=== PATIENT | female | born 1945 | race Caucasian/White ===

== ENCOUNTER → 2024-01-23 | Outpatient (CLI) | payer BC, SELFPAY | END | disposition home or self-care (01) | LOC: SWHD 12:48 | PROVIDERS: PCP Internal Medicine; Referring Provider Internal Medicine; Visit Provider Student in an Organized Health Care Education/Training Program | DX: L97.822 Non-pressure chronic ulcer of other part of left lower leg with fat layer exposed (principal); L97.812 Non-pressure chronic ulcer of other part of right lower leg with fat layer exposed; J45.909 Unspecified asthma, uncomplicated; G47.30 Sleep apnea, unspecified; Z92.3 Personal history of irradiation | CPT/HCPCS: 29581; A9270 ==

== ENCOUNTER → 2024-01-29 | Outpatient (CLI) | payer BC, SELFPAY | END | disposition home or self-care (01) | LOC: SWHD 03-19 07:20 | PROVIDERS: PCP Internal Medicine; Referring Provider Internal Medicine; Visit Provider Surgery | DX: I87.333 Chronic venous hypertension (idiopathic) with ulcer and inflammation of bilateral lower extremity (principal); L97.822 Non-pressure chronic ulcer of other part of left lower leg with fat layer exposed; L97.812 Non-pressure chronic ulcer of other part of right lower leg with fat layer exposed; J45.909 Unspecified asthma, uncomplicated; G47.30 Sleep apnea, unspecified; Z92.3 Personal history of irradiation | CPT/HCPCS: 29581 ==

== ENCOUNTER → 2024-02-09 | Outpatient (CLI) | payer BC, SELFPAY | END | disposition home or self-care (01) | LOC: SWHD 10:31 | PROVIDERS: PCP Internal Medicine; Referring Provider Internal Medicine; Visit Provider Surgery | DX: L97.811 Non-pressure chronic ulcer of other part of right lower leg limited to breakdown of skin (principal); J45.909 Unspecified asthma, uncomplicated; G47.30 Sleep apnea, unspecified; Z92.3 Personal history of irradiation | CPT/HCPCS: 29581 ==

== ENCOUNTER → 2024-03-02 | Outpatient (CLI) | payer BC, SELFPAY | END | disposition home or self-care (01) | LOC: SWHD 12:58 | PROVIDERS: PCP Internal Medicine; Referring Provider Internal Medicine; Visit Provider Student in an Organized Health Care Education/Training Program | DX: L97.822 Non-pressure chronic ulcer of other part of left lower leg with fat layer exposed (principal); J45.909 Unspecified asthma, uncomplicated; G47.30 Sleep apnea, unspecified; Z72.3 Lack of physical exercise; Z92.3 Personal history of irradiation | CPT/HCPCS: 11042; A9270 ==

== ENCOUNTER → 2024-03-09 | Outpatient (CLI) | payer BC, SELFPAY | END | disposition home or self-care (01) | PROVIDERS: PCP Internal Medicine; Referring Provider Internal Medicine; Visit Provider Student in an Organized Health Care Education/Training Program | DX: L97.822 Non-pressure chronic ulcer of other part of left lower leg with fat layer exposed (principal); J45.909 Unspecified asthma, uncomplicated; G47.30 Sleep apnea, unspecified; Z72.3 Lack of physical exercise; Z92.3 Personal history of irradiation | CPT/HCPCS: 11042; A9270 ==

== ENCOUNTER → 2024-03-16 | Outpatient (CLI) | payer BC, SELFPAY | END | disposition home or self-care (01) | LOC: SWHD 14:21 | PROVIDERS: PCP Internal Medicine; Referring Provider Internal Medicine; Visit Provider Surgery | DX: L97.822 Non-pressure chronic ulcer of other part of left lower leg with fat layer exposed (principal); J45.909 Unspecified asthma, uncomplicated; G47.30 Sleep apnea, unspecified; Z72.3 Lack of physical exercise; Z92.3 Personal history of irradiation | CPT/HCPCS: 29580; A9270 ==

== ENCOUNTER → 2024-03-23 | Outpatient (CLI) | payer BC, SELFPAY | END | disposition home or self-care (01) | LOC: SWHD 14:19 | PROVIDERS: PCP Internal Medicine; Referring Provider Internal Medicine; Visit Provider Student in an Organized Health Care Education/Training Program | DX: L97.822 Non-pressure chronic ulcer of other part of left lower leg with fat layer exposed (principal); L97.811 Non-pressure chronic ulcer of other part of right lower leg limited to breakdown of skin; J45.909 Unspecified asthma, uncomplicated; G47.30 Sleep apnea, unspecified; Z72.3 Lack of physical exercise; Z92.3 Personal history of irradiation | CPT/HCPCS: 11042; A9270 ==

== ENCOUNTER → 2024-03-30 | Outpatient (CLI) | payer BC, SELFPAY | END | disposition home or self-care (01) | PROVIDERS: PCP Internal Medicine; Referring Provider Internal Medicine; Visit Provider Student in an Organized Health Care Education/Training Program | DX: L97.822 Non-pressure chronic ulcer of other part of left lower leg with fat layer exposed (principal); L97.811 Non-pressure chronic ulcer of other part of right lower leg limited to breakdown of skin; J45.909 Unspecified asthma, uncomplicated; G47.30 Sleep apnea, unspecified; Z72.3 Lack of physical exercise; Z92.3 Personal history of irradiation | CPT/HCPCS: 11042; A9270 ==

== ENCOUNTER → 2024-04-08 | Outpatient (CLI) | payer BC, SELFPAY | END | disposition home or self-care (01) | PROVIDERS: PCP Internal Medicine; Referring Provider Internal Medicine; Visit Provider Student in an Organized Health Care Education/Training Program | DX: L97.821 Non-pressure chronic ulcer of other part of left lower leg limited to breakdown of skin (principal); L97.811 Non-pressure chronic ulcer of other part of right lower leg limited to breakdown of skin; J45.909 Unspecified asthma, uncomplicated; G47.30 Sleep apnea, unspecified; Z72.3 Lack of physical exercise; Z92.3 Personal history of irradiation | CPT/HCPCS: 97597; A9270 ==

== ENCOUNTER → 2024-04-20 | Outpatient (CLI) | payer BC, SELFPAY | END | disposition home or self-care (01) | LOC: SWHD 12:51 | PROVIDERS: PCP Internal Medicine; Referring Provider Internal Medicine; Visit Provider Surgery | DX: L97.821 Non-pressure chronic ulcer of other part of left lower leg limited to breakdown of skin (principal); L97.811 Non-pressure chronic ulcer of other part of right lower leg limited to breakdown of skin; J45.909 Unspecified asthma, uncomplicated; G47.30 Sleep apnea, unspecified; Z72.3 Lack of physical exercise; Z92.3 Personal history of irradiation | CPT/HCPCS: 11042; A9270 ==

== ENCOUNTER → 2024-04-27 | Outpatient (CLI) | payer BC, SELFPAY | END | disposition home or self-care (01) | LOC: SWHD 12:59 | PROVIDERS: PCP Internal Medicine; Referring Provider Internal Medicine; Visit Provider Student in an Organized Health Care Education/Training Program | DX: L97.822 Non-pressure chronic ulcer of other part of left lower leg with fat layer exposed (principal); J45.909 Unspecified asthma, uncomplicated; G47.30 Sleep apnea, unspecified; Z72.3 Lack of physical exercise; Z92.3 Personal history of irradiation | CPT/HCPCS: 17250; A9270 ==

== ENCOUNTER → 2024-05-04 | Outpatient (CLI) | payer BC, SELFPAY | END | disposition home or self-care (01) | LOC: SWHD 13:31 | PROVIDERS: PCP Internal Medicine; Referring Provider Internal Medicine; Visit Provider Student in an Organized Health Care Education/Training Program | DX: L97.822 Non-pressure chronic ulcer of other part of left lower leg with fat layer exposed (principal); J45.909 Unspecified asthma, uncomplicated; G47.30 Sleep apnea, unspecified; Z72.3 Lack of physical exercise; Z92.3 Personal history of irradiation | CPT/HCPCS: 29580 ==

== ENCOUNTER → 2024-05-11 | Outpatient (CLI) | payer BC, SELFPAY | END | disposition home or self-care (01) | LOC: SWHD 13:09 | PROVIDERS: PCP Internal Medicine; Referring Provider Internal Medicine; Visit Provider Student in an Organized Health Care Education/Training Program | DX: L97.822 Non-pressure chronic ulcer of other part of left lower leg with fat layer exposed (principal); J45.909 Unspecified asthma, uncomplicated; G47.30 Sleep apnea, unspecified; Z72.3 Lack of physical exercise; Z92.3 Personal history of irradiation | CPT/HCPCS: 17250; A9270 ==

== ENCOUNTER → 2024-05-18 | Outpatient (CLI) | payer BC, SELFPAY | END | disposition home or self-care (01) | LOC: SWHD 14:34 | PROVIDERS: PCP Internal Medicine; Referring Provider Internal Medicine; Visit Provider Student in an Organized Health Care Education/Training Program | DX: L97.822 Non-pressure chronic ulcer of other part of left lower leg with fat layer exposed (principal); J45.909 Unspecified asthma, uncomplicated; G47.30 Sleep apnea, unspecified; Z72.3 Lack of physical exercise | CPT/HCPCS: 29580; A9270 ==

== ENCOUNTER → 2024-05-27 | Outpatient (CLI) | payer BC, SELFPAY | END | disposition home or self-care (01) | LOC: SWHD 13:20 | PROVIDERS: PCP Internal Medicine; Referring Provider Internal Medicine; Visit Provider Student in an Organized Health Care Education/Training Program | DX: L89.891 Pressure ulcer of other site, stage 1 (principal); L97.822 Non-pressure chronic ulcer of other part of left lower leg with fat layer exposed; J45.909 Unspecified asthma, uncomplicated; G47.30 Sleep apnea, unspecified; Z72.3 Lack of physical exercise; L85.3 Xerosis cutis | CPT/HCPCS: 99213; A9270; G0463 ==

== ENCOUNTER → 2024-06-10 | Outpatient (CLI) | payer BC, SELFPAY | END | disposition home or self-care (01) | LOC: SWHD 13:59 | PROVIDERS: PCP Internal Medicine; Referring Provider Internal Medicine; Visit Provider Student in an Organized Health Care Education/Training Program | DX: L89.891 Pressure ulcer of other site, stage 1 (principal); L97.822 Non-pressure chronic ulcer of other part of left lower leg with fat layer exposed; J45.909 Unspecified asthma, uncomplicated; G47.30 Sleep apnea, unspecified; Z72.3 Lack of physical exercise; L85.3 Xerosis cutis; I89.0 Lymphedema, not elsewhere classified | CPT/HCPCS: 99213; G0463 ==

== ENCOUNTER → 2024-09-08 | Outpatient (CLI) | payer BC, SELFPAY ==
--- NOTE | 2024-09-08 09:45 | XR_ITS ---
Examination: Screening digital mammography, bilateral Computer aided detection 3-D breast Tomosynthesis, bilateral Date and time of exam: September 08, 2024 0942 hours Compared to mammograms dating to July 08, 2018 Indication: Screening Technique: Nonmagnified MLO, CC views of the breasts to been obtained, reconstructed from 3-D Tomosynthesis images. R2 computer aided detection program utilized for evaluation of suspicious masses and/or abnormal calcifications. 3-D Tomosynthesis images obtained. Findings: Scattered areas of fibroglandular density. Stable scar formation upper outer left breast consistent with patient's history treated left breast cancer Benign calcifications Left breast skin thickening again noted Impression: BI-RADS category II: Benign Findings. Recommend 1 year follow-up mammogram. Recommend repeat left breast sonography to compare with the ultrasound 01/02/2021
== END | disposition home or self-care (01) ==
LOC: CDIM 09:32
PROVIDERS: Referring Provider Internal Medicine; Visit Provider Internal Medicine
DX: Z12.31 Encounter for screening mammogram for malignant neoplasm of breast (principal); R92.323 Mammographic fibroglandular density, bilateral breasts; R92.1 Mammographic calcification found on diagnostic imaging of breast
CPT/HCPCS: 77063; 77067